=== PATIENT | male | born 1965 | race Caucasian/White ===

== ENCOUNTER 2017-09-23 09:37 | Emergency (ER) | payer SELFPAY ==
[~2017-09-23] VITALS: Ht 182.9 cm; Wt 106.6 kg
[2017-09-23 09:57] VITALS: BP 162/116
== END 2017-09-23 10:25 | disposition home or self-care (01) ==
LOC: ER 09:37
DX: L03.115 Cellulitis of right lower limb (principal); R11.10 Vomiting, unspecified; F17.210 Nicotine dependence, cigarettes, uncomplicated